=== PATIENT | male | born 1960 | race African-American/Black ===

== ENCOUNTER 2016-09-25 11:34 | Inpatient (IN) | payer OTHER ==
[2016-09-25 13:06] VITALS: BMI 33.3
--- NOTE | 2016-09-25 19:04 | HP ---
Admission ROS [facility] - [facility] Chief Complaint: i am here for rehab form cocaine Allergies/Adverse Reactions: Allergies Allergy/AdvReac Type Severity Reaction Status Date / Time No Known Allergies Allergy Verified 09/25/16 16:58 History of Present Illness: this 56 years old male with cocaine dependence,seeking rehab,last treatment o 10/22/15 [facility] not completed hypertension longest sobriety 2 and half years Exam Limitations: No Limitations - Ebola screening Have you traveled outside of the country in the last 21 days: No Have you been sick,other than usual withdrawal symptoms: No - Review of Systems Constitutional: No Symptoms Reported EENT: reports: No Symptoms Reported Respiratory: reports: No Symptoms reported Cardiac: reports: No Symptoms Reported GI: reports: No Symptoms Reported : reports: No Symptoms Reported Musculoskeletal: reports: Joint Pain, Other (injury of both knees, back pain ambulation with cane) Integumentary: reports: No Symptoms Reported Neuro: reports: No Symptoms reported Endocrine: reports: No Symptoms Reported Hematology: reports: No Symptoms Reported Psychiatric: reports: No Sypmtoms Reported Patient History - Patient Medical History Hx Anemia: No Hx Asthma: No Hx Chronic Obstructive Pulmonary Disease (COPD): No Hx Cancer: No Hx Cardiac Disorders: No Hx Congestive Heart Failure: No Hx Hypertension: Yes (ON MEDS) Hx Hypercholesterolemia: No Hx Pacemaker: No HX Cerebrovascular Accident: No Hx Seizures: No Hx Dementia: No Hx Diabetes: No Hx Gastrointestinal Disorders: No Hx Liver Disease: No Hx Genitourinary Disorders: No Hx Sexually Transmitted Disorders: No Hx Renal Disease (ESRD): No Hx Thyroid Disease: No Hx Human Immunodeficiency Virus (HIV): No Hx Hepatitis C: No Hx Depression: No Hx Suicide Attempt: No Hx Bipolar Disorder: Yes (NOT CURRENTLY TAKING MED ( DECLINES PSYCH EVAL THIS ADMISSION).) Hx Schizophrenia: No Other Medical History: no suiidal,no homicidal - Patient Surgical History Past Surgical History: No Hx Neurologic Surgery: No Hx Cataract Extraction: No Hx Cardiac Surgery: No Hx Lung Surgery: No Hx Breast Surgery: No Hx Breast Biopsy: No Hx Abdominal Surgery: No Hx Appendectomy: No Hx Cholecystectomy: No Hx Genitourinary Surgery: No Hx Section: No Hx Orthopedic Surgery: No Anesthesia Reaction: No - PPD History Previous Implant?: Yes Documented Results: Negative w/proof Implanted On Prior [facility] Admission?: Yes Date: 10/23/15 Results: 0 mm PPD to be Administered?: No - Smoking Cessation Smoking history: Never smoked Have you smoked in the past 12 months: No Hx Chewing Tobacco Use: No - Substance & Tx. History Hx Alcohol Use: No Substance Use Type: Cocaine Hx Substance Use Treatment: Yes (10/21/15 10/22/15 [facility] not completed) - Substances Abused Cocaine Route: Smoking Frequency: 3-6 times per week Amount used: 30$ Age of first use: 24 Date of Last Use: 09/22/16 Family Disease History - Family Disease History Family Disease History: Heart Disease: Mother (HTN- ) Admission Physical Exam [facility] - Vital Signs Vital Signs: Vital Signs - 24 hr 09/25/16 13:03 Temperature 96.2 F L Pulse Rate 72 Respiratory 18 Rate Blood Pressure 151/81 - Physical General Appearance: Yes: Within Normal Limits HEENTM: Yes: Within Normal Limits, Normocephalic, LUCY, Pharynx Normal Respiratory: Yes: Lungs Clear, Normal Breath Sounds, No Respiratory Distress Neck: Yes: Within Normal Limits Breast: Yes: Within Normal Limits Cardiology: Yes: Within Normal Limits, Regular Rhythm, Regular Rate, S1, S2 Abdominal: Yes: Within Normal Limits, Normal Bowel Sounds, Non Tender, Flat, Soft Genitourinary: Yes: Within Normal Limits Back: Yes: Other (low back pain chronic) Musculoskeletal: Yes: full range of Motion, Back pain, Muscle Pain Extremities: Yes: Other (on knees support limitation on movement both knees) Neurological: Yes: vp rheumatology II-XII NML intact, Fully Oriented, Alert, Motor Strength 5/5 Integumentary: Yes: Within Normal Limits Lymphatic: Yes: Within Normal Limits - Diagnostic (1) Cocaine dependence Current Visit: No Status: Acute Qualifiers: Complication of substance-induced condition: uncomplicated (2) Essential hypertension Current Visit: No Status: Chronic (3) Bipolar disorder Current Visit: No Status: Suspected Comment: PT DECLINED EVALUATION STATING "I'M FINE AND DON'T WANT TO SEE ANY PSYCH. IF I NEED HELP I WILL LET YOU KNOW". (4) Chronic low back pain Current Visit: Yes Status: Acute (5) Chronic pain of both knees Current Visit: Yes Status: Acute (6) Use of cane as ambulatory aid Current Visit: Yes Status: Acute Cleared for Admission [facility] - Detox or Rehab Claeared for Rehab Admission: Yes [facility] Breath Alcohol Content Breath Alcohol Content: 0 Urine Drug Screen - Results Drug Screen Negative: Yes
[2016-09-25] MEDS ORDERED: guaiFENesin/D-METHORPHAN HB 10 ML UNIT-DOSE CUPS PO PRN (19:22)
[2016-09-25] MEDS ORDERED: LOPERAMIDE HCL 2 MG CAPSULE PO PRN (19:22)
[2016-09-25] MEDS ORDERED: hydrOXYzine PAMOATE 50 MG CAPSULE (FP) PO PRN (19:22)
[2016-09-25] MEDS ORDERED: MAGNESIUM HYDROX 2400MG/30ML ORAL SUSPENSION 30 ML CUP PO PRN (19:22)
[2016-09-25] MEDS ORDERED: diphenhydrAMINE HCL 50 MG CAPSULE PO PRN (19:22)
[2016-09-25] MEDS ORDERED: MENTHOL/PHENOL 1 EACH UD MM PRN (19:22)
[2016-09-25] MEDS ORDERED: MAGNESIUM CITRATE 300 ML BOTTLE PO PRN (19:22)
[2016-09-25] MEDS ORDERED: MAG HYDROX/AL HYDROX/SIMETH 30 ML UNIT-DOSE CUP PO PRN (19:22)
[2016-09-25] MEDS ORDERED: P-EPHED 60MG/TRIPROLIDI 2.5MG TABLET PO PRN (19:22)
[2016-09-25] MEDS: THIAMINE HCL 100 MG TABLET (FP) PO SCH (22:14)
[2016-09-26 01:47] LABS: URINE APPEARANCE CLEAR; URINE BILIRUBIN NEGATIVE (NEGATIVE); URINE BLOOD NEGATIVE (NEGATIVE); URINE COLOR YELLOW; URINE GLUCOSE (UA) NEGATIVE (NEGATIVE); URINE KETONE NEGATIVE (NEGATIVE); URINE LEUK ESTERASE NEGATIVE (NEGATIVE); URINE NITRITE NEGATIVE (NEGATIVE); URINE PROTEIN NEGATIVE (NEGATIVE); URINE UROBILINOGEN NEGATIVE mg/dL (0.2-1.0)
[2016-09-26] MEDS: IBUPROFEN 400 MG TABLET (FP) PO PRN (07:19)
[2016-09-26] MEDS ORDERED: PATIENT'S OWN MEDICATION (NON-FORMULARY) (Losartan/Hydrochlorothiazide [Hyzaar 100-25 Tabl PO SCH (10:00)
[2016-09-26] MEDS ORDERED: amLODIPine BESYLATE 10 MG TABLET (FP) PO SCH (10:00)
[2016-09-26 10:35] LABS: MCH 26.5 pg (25.7-33.7); MCHC 32.4 g/dl (32.0-35.9); MEAN CELL VOLUME 81.7 fl (80-96); MEAN PLT VOLUME 9.1 fl (7.5-11.1); PLATELET COUNT 176 K/MM3 (134-434); RDW 14.9 % (11.9-15.9); WHITE BLOOD COUNT 5.1 K/mm3 (4.0-10.0)
[2016-09-26 10:43] LABS: ALBUMIN 3.5 g/dl (3.4-5.0); ANION GAP 7 (8-16); BILIRUBIN,TOTAL 0.5 mg/dL (0.2-1.0); CALCIUM 8.6 mg/dL (8.5-10.1); CO2 30 mmol/L (21-32); CREATININE 1.2 mg/dL (0.7-1.3); GLUCOSE,RANDOM 88 mg/dL (74-106); SGOT/AST 12 U/L (15-37); SGPT/ALT 23 U/L (12-78); TOT PROT 6.6 g/dl (6.4-8.2)
[2016-09-26 10:44] LABS: ALK PHOS 69 U/L (45-117)
[2016-09-26] MEDS ORDERED: [UNRECOGNIZED DRUG - REMARK] PO ONE (11:45)
[2016-09-26] MEDS: PRENATAL VITAMINS W/ FOLIC ACID TABLET (FP) PO SCH (13:13)
[2016-09-26] MEDS: THIAMINE HCL 100 MG TABLET (FP) PO SCH (21:56)
[2016-09-27] MEDS: amLODIPine BESYLATE 10 MG TABLET (FP) PO SCH (06:22)
[2016-09-27] MEDS: PATIENT'S OWN MEDICATION (NON-FORMULARY) (Losartan/Hydrochlorothiazide [Hyzaar 100-25 Tabl PO SCH (06:22)
[2016-09-27] MEDS: IBUPROFEN 400 MG TABLET (FP) PO PRN ×2 (06:24→21:12)
[2016-09-27] MEDS: PRENATAL VITAMINS W/ FOLIC ACID TABLET (FP) PO SCH (09:18)
[2016-09-27] MEDS: BACLOFEN 10 MG TABLET (FP) PO PRN (09:18)
[2016-09-27] MEDS: THIAMINE HCL 100 MG TABLET (FP) PO SCH (21:12)
[2016-09-28] MEDS: PATIENT'S OWN MEDICATION (NON-FORMULARY) (Losartan/Hydrochlorothiazide [Hyzaar 100-25 Tabl PO SCH (06:21)
[2016-09-28] MEDS: amLODIPine BESYLATE 10 MG TABLET (FP) PO SCH (06:21)
[2016-09-28] MEDS: IBUPROFEN 400 MG TABLET (FP) PO PRN ×2 (06:22→21:46)
[2016-09-28] MEDS: BACLOFEN 10 MG TABLET (FP) PO PRN (06:24)
--- NOTE | 2016-09-28 07:12 | HP ---
Psychiatrist Admission - Data Date of interview: 09/28/16 Admission source: Self-referred Identifying data: This is the second [facility] admission for this 56 years old single Black male, father of 3 children, unemployed on public assistance, homeless Medical History: Significant for hypertension Psychiatric History: Reports that his only psychiatric treatment was in 2008 following his mother's . Claims that he saw a psychiatist at a clinic in [place], [place], was diagnosed with Bipolar, depression and anxiety and started on Risperdal, Trazadone and Xanax. Reports that he took medications for only a year. Claims that he was using drug at that time. Denies history of previous psychiatric hospitalization or suicidal attempt. At present, reports feeling mildly depressed but sleeping well. Physical/Sexual Abuse/Trauma History: Denies history of emotional, physical or sexual abuse as well as DV relationship Additional Comment: Reports history of multiple arrests including 4 felony convictions. 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 No parole /probation at present Vital Signs: Vital Signs - 24 hr 09/27/16 09/28/16 09/28/16 10:15 00:30 07:00 Temperature 98.4 F Pulse Rate 65 62 Respiratory 18 18 18 Rate Blood Pressure 148/84 175/112 Allergies/Adverse Reactions: Allergies Allergy/AdvReac Type Severity Reaction Status Date / Time No Known Allergies Allergy Verified 09/25/16 16:58 Date of last physical exam: 09/25/16 Concur with the findings of this exam: Yes - Substance Abuse/Tx History Hx Alcohol Use: No Hx Substance Use: Yes Substance Use Type: Cocaine (Started using cocaine at age 24, consumes $30 worth 3-6 times weekly. Last used on 09/22/16) Hx Substance Use Treatment: Yes (8 previous inpt detox & one inpt rehab) - Admission Criteria Previous failed treatment: Yes Poor recovery environment: Yes Comorbidities: Yes Lacks judgement: Yes Mental Status Exam - Mental Status Exam Alert and Oriented to: Time, Place, Person Cognitive Function: Fair Patient Appearance: Well Groomed Mood: Depressed Affect: Appropriate Patient Behavior: Cooperative Speech Pattern: Clear Voice Loudness: Normal Thought Process: Intact, Goal Oriented Thought Disorder: Not Present Hallucinations: Denies Suicidal Ideation: Denies Homicidal Ideation: Denies Insight/Judgement: Fair Sleep: Well Appetite: Good Muscle strength/Tone: Normal Gait/Station: Normal Psychiatric Findings - Problem List ([place] 1, 2,3) (1) Cocaine dependence Current Visit: No Status: Acute Qualifiers: Complication of substance-induced condition: uncomplicated (2) Substance induced mood disorder Current Visit: Yes Status: Acute (3) Essential hypertension Current Visit: No Status: Chronic (4) Bipolar disorder Current Visit: No Status: Ruled-out Comment: PT DECLINED EVALUATION STATING "I'M FINE AND DON'T WANT TO SEE ANY PSYCH. IF I NEED HELP I WILL LET YOU KNOW". - Initial Treatment Plan Initial Treatment Plan: Monitor progress
--- NOTE | 2016-09-28 09:59 | EKG ---
Test Reason : Blood Pressure : / mmHG Vent. Rate : 073 BPM Atrial Rate : 073 BPM P-R Int : 144 ms QRS Dur : 094 ms QT Int : 438 ms P-R-T Axes : 042 -30 -14 degrees QTc Int : 482 ms SINUS RHYTHM WITH PREMATURE ATRIAL COMPLEXES LEFT AXIS DEVIATION VOLTAGE CRITERIA FOR LEFT VENTRICULAR HYPERTROPHY CANNOT RULE OUT SEPTAL INFARCT , AGE UNDETERMINED ABNORMAL ECG NO PREVIOUS ECGS AVAILABLE Confirmed by GREGORIO CRESPO, MICHAELA ([id number]) on 09/28/2016 9:59:00 AM Referred By: Hallie Wong Confirmed By:MICHAELA PERKINS MD
[2016-09-28] MEDS: PRENATAL VITAMINS W/ FOLIC ACID TABLET (FP) PO SCH (10:06)
[2016-09-28] MEDS: THIAMINE HCL 100 MG TABLET (FP) PO SCH (21:40)
[2016-09-29] MEDS: PATIENT'S OWN MEDICATION (NON-FORMULARY) (Losartan/Hydrochlorothiazide [Hyzaar 100-25 Tabl PO SCH (06:15)
[2016-09-29] MEDS: amLODIPine BESYLATE 10 MG TABLET (FP) PO SCH (06:16)
[2016-09-29] MEDS: PRENATAL VITAMINS W/ FOLIC ACID TABLET (FP) PO SCH (10:15)
[2016-09-29] MEDS ORDERED: cloNIDine HCL 0.1 MG TABLET PO ONE (15:56)
[2016-09-29] MEDS: IBUPROFEN 400 MG TABLET (FP) PO PRN (19:59)
[2016-09-29] MEDS: THIAMINE HCL 100 MG TABLET (FP) PO SCH (22:05)
[2016-09-30] MEDS: PATIENT'S OWN MEDICATION (NON-FORMULARY) (Losartan/Hydrochlorothiazide [Hyzaar 100-25 Tabl PO SCH (06:07)
[2016-09-30] MEDS: amLODIPine BESYLATE 10 MG TABLET (FP) PO SCH (06:07)
[2016-09-30] MEDS: IBUPROFEN 400 MG TABLET (FP) PO PRN (06:09)
[2016-09-30] MEDS: PRENATAL VITAMINS W/ FOLIC ACID TABLET (FP) PO SCH (11:10)
[2016-09-30] MEDS: ACETAMINOPHEN 325 MG TABLET (FP) PO PRN (11:15)
[2016-09-30] MEDS ORDERED: LIDOCAINE VISCOUS 2% ORAL/TOP 20 ML UNIT-DOSE CUP MM PRN (11:50)
--- NOTE | 2016-09-30 11:50 | PN ---
[facility] Progress Note Note: DENTAL CAVITY LEFT UPPER MOLAR,STATED THE FILLING CAME OFF, MOTINE 800 MGS PO TID PRN,LIDOCAINE VISCOUS PRN
--- NOTE | 2016-09-30 11:52 | PN ---
S Progress Note Note: ADENDUM PATIENT NEED EMERGENCY DENTAL CARE
[2016-09-30] MEDS: THIAMINE HCL 100 MG TABLET (FP) PO SCH (22:19)
[2016-10-01] MEDS: IBUPROFEN 400 MG TABLET (FP) PO PRN (00:25)
[2016-10-01] MEDS ORDERED: PT OWN MED DRAWER 7, Y5N ONE (03:31)
[2016-10-01] MEDS: amLODIPine BESYLATE 10 MG TABLET (FP) PO SCH (06:06)
[2016-10-01] MEDS: PATIENT'S OWN MEDICATION (NON-FORMULARY) (Losartan/Hydrochlorothiazide [Hyzaar 100-25 Tabl PO SCH (06:08)
[2016-10-01] MEDS: PRENATAL VITAMINS W/ FOLIC ACID TABLET (FP) PO SCH (10:03)
[2016-10-01] MEDS ORDERED: METOPROLOL TARTRATE 50 MG TABLET (FP) PO ONE (14:49)
[2016-10-01] MEDS: THIAMINE HCL 100 MG TABLET (FP) PO SCH (21:59)
[2016-10-01] MEDS: METOPROLOL TARTRATE 50 MG TABLET (FP) PO SCH (21:59)
[2016-10-02] MEDS: amLODIPine BESYLATE 10 MG TABLET (FP) PO SCH (05:08)
[2016-10-02] MEDS: PATIENT'S OWN MEDICATION (NON-FORMULARY) (Losartan/Hydrochlorothiazide [Hyzaar 100-25 Tabl PO SCH (05:08)
[2016-10-02] MEDS ORDERED: PT OWN MED DRAWER 7, Y5N ONE (05:08)
[2016-10-02] MEDS: METOPROLOL TARTRATE 50 MG TABLET (FP) PO SCH ×2 (09:43→21:30)
[2016-10-02] MEDS: PRENATAL VITAMINS W/ FOLIC ACID TABLET (FP) PO SCH (09:43)
[2016-10-02] MEDS: IBUPROFEN 400 MG TABLET (FP) PO PRN (21:30)
[2016-10-02] MEDS: THIAMINE HCL 100 MG TABLET (FP) PO SCH (21:31)
[2016-10-03] MEDS: PATIENT'S OWN MEDICATION (NON-FORMULARY) (Losartan/Hydrochlorothiazide [Hyzaar 100-25 Tabl PO SCH (06:30)
[2016-10-03] MEDS: amLODIPine BESYLATE 10 MG TABLET (FP) PO SCH (06:30)
[2016-10-03] MEDS: METOPROLOL TARTRATE 50 MG TABLET (FP) PO SCH ×2 (09:47→21:32)
[2016-10-03] MEDS: PRENATAL VITAMINS W/ FOLIC ACID TABLET (FP) PO SCH (09:47)
[2016-10-03] MEDS: THIAMINE HCL 100 MG TABLET (FP) PO SCH (21:33)
[2016-10-03] MEDS: IBUPROFEN 400 MG TABLET (FP) PO PRN (21:33)
[2016-10-04] MEDS: ACETAMINOPHEN 325 MG TABLET (FP) PO PRN (04:34)
[2016-10-04] MEDS: amLODIPine BESYLATE 10 MG TABLET (FP) PO SCH (05:58)
[2016-10-04] MEDS: PATIENT'S OWN MEDICATION (NON-FORMULARY) (Losartan/Hydrochlorothiazide [Hyzaar 100-25 Tabl PO SCH (05:58)
[2016-10-04] MEDS: PRENATAL VITAMINS W/ FOLIC ACID TABLET (FP) PO SCH (09:53)
[2016-10-04] MEDS: METOPROLOL TARTRATE 50 MG TABLET (FP) PO SCH ×2 (09:53→21:21)
[2016-10-04] MEDS: IBUPROFEN 400 MG TABLET (FP) PO PRN (21:19)
[2016-10-04] MEDS: THIAMINE HCL 100 MG TABLET (FP) PO SCH (21:19)
[2016-10-05] MEDS ORDERED: PT OWN MED DRAWER 7, Y5N ONE ×2 (05:16→09:05)
[2016-10-05] MEDS: PATIENT'S OWN MEDICATION (NON-FORMULARY) (Losartan/Hydrochlorothiazide [Hyzaar 100-25 Tabl PO SCH (06:05)
[2016-10-05] MEDS: amLODIPine BESYLATE 10 MG TABLET (FP) PO SCH (06:05)
[2016-10-05 07:08] VITALS: TEMP 97.5
[2016-10-05 08:28] VITALS: BP 155/85; PULSE 63
[2016-10-05] MEDS: PRENATAL VITAMINS W/ FOLIC ACID TABLET (FP) PO SCH (09:05)
[2016-10-05] MEDS: METOPROLOL TARTRATE 50 MG TABLET (FP) PO SCH (09:06)
--- NOTE | 2016-10-05 09:06 | PN ---
Psychiatric Progress Note Vital Signs: Vital Signs Period Temp Pulse Resp BP Sys/Astudillo Pulse Ox Last 24 Hr 97.5 F 57-65 18-18 144-158/74-100 Date of Session: 10/05/16 Chief Complaint:: Discharge Note HPI: Patient addressing Cocaine Dependence comorbid with Substance-Induced Mood Disorder ROS: HTN were medically managed Current Medications: Active Medications Generic Name Dose Route Start Last Admin Trade Name Freq PRN Reason Stop Dose Admin Acetaminophen 650 mg 09/25/16 19:22 10/04/16 04:34 Tylenol - PO 650 mg Q4H PRN Administration PAIN Al Hydroxide/Mg Hydroxide 30 ml 09/25/16 19:22 Mylanta Oral Suspension - PO Q6H PRN DYSPEPSIA Amlodipine Besylate 10 mg 09/26/16 07:02 10/05/16 06:05 Norvasc - PO 10 mg DAILY@0600 BLAKE Administration Baclofen 10 mg 09/25/16 19:24 09/28/16 06:24 Lioresal - PO 10 mg DAILY PRN Administration PAIN Diphenhydramine HCl 50 mg 09/25/16 19:22 10/01/16 01:42 Benadryl - PO 50 mg HSMR1 PRN Administration INSOMNIA Eucalyptus/Menthol/Phenol/Sorbitol 1 each 09/25/16 19:22 Cepastat Lozenge - MM Q4H PRN SORE THROAT Guaifenesin 10 ml 09/25/16 19:22 Robitussin Dm - PO Q6H PRN COUGH Hydroxyzine Pamoate 50 mg 09/25/16 19:22 Vistaril - PO Q4H PRN AGITATION Ibuprofen 800 mg 09/28/16 12:18 10/04/16 21:19 Motrin - PO 800 mg Q8H PRN Administration PAIN Lidocaine HCl 20 ml 09/30/16 11:50 10/04/16 04:35 Xylocaine 2% Viscous Oral - MM 20 ml Q6HPO PRN Administration ORAL PAIN/MOUTH SORES Loperamide HCl 4 mg 09/25/16 19:22 Imodium - PO Q6H PRN DIARRHEA Magnesium Citrate 300 ml 09/25/16 19:22 Citroma - PO Q48H PRN CONSTIPATION Magnesium Hydroxide 30 ml 09/25/16 19:22 Milk Of Magnesia - PO DAILY PRN CONSTIPATION Metoprolol Tartrate 50 mg 10/01/16 22:00 10/04/16 21:21 Lopressor - PO 50 mg BID BLAKE Administration Non-Formulary Medication 0 each 09/27/16 06:00 10/05/16 06:05 Losartan/Hydrochlorothiazide [Hyzaar 100-25 Tablet] PO 100 each DAILY@0600 BLAKE Administration Multivit/Folic Acid/Iron 1 tab 09/26/16 10:00 10/04/16 09:53 Vitamins ([facility]) - PO 1 tab DAILY BLAKE Administration Pseudoephedrine/Triprolidine 1 combo 09/25/16 19:22 Actifed - PO TID PRN NASAL CONGESTION Thiamine HCl 100 mg 09/25/16 22:00 10/04/16 21:19 Vitamin B1 - PO 100 mg HS BLAKE Administration Current Side Effect: No Lab tests ordered: Yes Lab tests reviewed: Yes Provider note:: Patient has completed this program today. He has partially met his treatment goals and will continue to address his issues in outpatient treatment at [facility]. 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 He is scheduled for discharge today Total face to face time:: 35 Mental Status Exam - Mental Status Exam Alert and Oriented to: Time, Place, Person Cognitive Function: Fair Patient Appearance: Well Groomed Mood: Hopeful, Euthymic Affect: Appropriate Patient Behavior: Cooperative Speech Pattern: Clear Voice Loudness: Normal Thought Process: Intact Thought Disorder: Not Present Hallucinations: Denies Suicidal Ideation: Denies Homicidal Ideation: Denies Insight/Judgement: Fair Sleep: Fair Muscle strength/Tone: Normal Gait/Station: Antalgic (walks with a cane) Psychiatric Treatment Plan - Problem List (1) Cocaine dependence Current Visit: No Qualifiers: Complication of substance-induced condition: uncomplicated (2) Substance induced mood disorder Current Visit: Yes (3) Essential hypertension Current Visit: No (4) Bipolar disorder Current Visit: No Comment: PT DECLINED EVALUATION STATING "I'M FINE AND DON'T WANT TO SEE ANY PSYCH. IF I NEED HELP I WILL LET YOU KNOW". Initial treatment plan: Patient is discharged today and referred back to [facility] for outpatient treeatment
== END 2016-10-05 09:25 | disposition home or self-care (01) | DRG 772 ==
LOC: YASAS 11:34 → Y3W 17:09
PROVIDERS: ADMIT Psychiatry & Neurology Psychiatry; ATTEND Psychiatry & Neurology Psychiatry
PROC: HZ42ZZZ Group Counseling for Substance Abuse Treatment, Cognitive-Behavioral (ICD-10-PCS; principal; 2016-09-25)
DX: F14.20 Cocaine dependence, uncomplicated (principal); F19.24 Other psychoactive substance dependence with psychoactive substance-induced mood disorder; F31.9 Bipolar disorder, unspecified; I10 Essential (primary) hypertension; K02.9 Dental caries, unspecified; R26.2 Difficulty in walking, not elsewhere classified; Z99.89 Dependence on other enabling machines and devices; M54.5 Low back pain; M25.562 Pain in left knee; M25.561 Pain in right knee; G89.29 Other chronic pain
CPT/HCPCS: 36415; 80053; 81003; 85027; 86593; 93005; 93010; J0475

== ENCOUNTER 2018-01-09 15:51 | Inpatient (IN) | payer OTHER ==
[2018-01-09 16:06] VITALS: BMI 33.7
--- NOTE | 2018-01-09 16:13 | HP ---
CIWA Score Nausea/Vomitin Muscle Tremors: 2 Anxiety: 2 Agitation: 2 Paroxysmal Sweats: 1-Minimal Palms Moist Orientation: 0-Oriented Tacttile Disturbances: 1-Very Mild Itch/Numbness Auditory Disturbances: 1-Very Mild Visual Disturbances: 0-None Headache: 2-Mild CIWA-Ar Total Score: 13 - Admission Criteria [facility] Guidelines: Admission for Medically Managed Detox: Requires at least one of the followin. CIWA greater than 12 2. Seizures within the past 24 hours 3. Delirium tremens within the past 24 hours 4. Hallucinations within the past 24 hours 5. Acute intervention needed for co occurring medical disorder 6. Acute intervention needed for co occurring psychiatric disorder 7. Severe withdrawal that cannot be handled at a lower level of care (continued vomiting, continued diarrhea, abnormal vital signs) requiring intravenous medication and/or fluids 8. Patient presents the following: CIWA greater than 12 Admission Criteria Met: Admission criteria met Admission ROS [facility] - HPI Chief Complaint: i need help to stop drinking alcohol and cocaine Allergies/Adverse Reactions: Allergies Allergy/AdvReac Type Severity Reaction Status Date / Time No Known Allergies Allergy Verified 01/09/18 17:08 History of Present Illness: this 57 years old male with alcohol and cocaine dependence,seeking detox, withdrawal symptom,last detox 10/21/15 to 10/22/15 not completed at [facility] 09/25/16 to 11/06/16 chronic both knees pain for 2 years ambulation with cane longest sobriety 17 months Exam Limitations: No Limitations - Ebola screening Have you been sick,other than usual withdrawal symptoms: No - Review of Systems Constitutional: Malaise, Night Sweats, Changes in sleep EENT: reports: Nose Congestion Respiratory: reports: No Symptoms reported GI: reports: Diarrhea, Nausea, Indigestion : reports: No Symptoms Reported Musculoskeletal: reports: Back Pain, Joint Pain, Muscle Pain, Joint Stiffness Integumentary: reports: Dryness Neuro: reports: Headache, Tremors Endocrine: reports: No Symptoms Reported Hematology: reports: No Symptoms Reported Psychiatric: reports: No Sypmtoms Reported, Mood/Affect Appropiate, Orientated x3 Patient History - Patient Medical History Hx Anemia: No Hx Asthma: No Hx Chronic Obstructive Pulmonary Disease (COPD): No Hx Cancer: No Hx Cardiac Disorders: No Hx Congestive Heart Failure: No Hx Hypertension: Yes (no med) Hx Hypercholesterolemia: No Hx Pacemaker: No HX Cerebrovascular Accident: No Hx Seizures: No Hx Dementia: No Hx Diabetes: No Hx Gastrointestinal Disorders: No Hx Liver Disease: No Hx Genitourinary Disorders: No Hx Sexually Transmitted Disorders: No Hx Renal Disease (ESRD): No Hx Thyroid Disease: No Hx Human Immunodeficiency Virus (HIV): No (last 2017 neative) Hx Hepatitis C: No Hx Depression: No Hx Suicide Attempt: No Hx Bipolar Disorder: Yes (NOT CURRENTLY TAKING MED ( DECLINES PSYCH EVAL THIS ADMISSION).) Hx Schizophrenia: No Other Medical History: no suicidal,no homicidal - Patient Surgical History Past Surgical History: No Hx Neurologic Surgery: No Hx Cataract Extraction: No Hx Cardiac Surgery: No Hx Lung Surgery: No Hx Breast Surgery: No Hx Breast Biopsy: No Hx Abdominal Surgery: No Hx Appendectomy: No Hx Cholecystectomy: No Hx Genitourinary Surgery: No Hx Section: No Hx Orthopedic Surgery: No Anesthesia Reaction: No - PPD History Previous Implant?: Yes Documented Results: Negative w/proof Implanted On Prior [facility] Admission?: Yes Date: 10/23/15 Results: 0 mm PPD to be Administered?: No - Smoking Cessation Smoking history: Never smoked Have you smoked in the past 12 months: No Hx Chewing Tobacco Use: No - Substance & Tx. History Hx Alcohol Use: Yes Hx Substance Use: Yes Substance Use Type: Alcohol, Cocaine Hx Substance Use Treatment: Yes ([facility] 10/21/15 to 10/22/15 not completed) - Substances Abused Alcohol Route: Oral Frequency: Daily Amount used: 6 packs of 24 ozs of beer Age of first use: 15 Date of Last Use: 01/09/18 Cocaine Route: Inhalation Frequency: Daily Amount used: 30$ Age of first use: 15 Date of Last Use: 01/09/18 Family Disease History - Family Disease History Family Disease History: Heart Disease: Mother (HTN- ) Admission Physical Exam [facility] - Vital Signs Vital Signs: Vital Signs - 24 hr 01/09/18 16:03 Temperature 98.6 F Pulse Rate 65 Respiratory 18 Rate Blood Pressure 161/109 H - Physical General Appearance: Yes: Moderate Distress, Tremorous, Irritable, Sweating, Anxious HEENTM: Yes: Normal ENT Inspection, LUCY, Pharynx Normal Respiratory: Yes: Lungs Clear, Normal Breath Sounds, No Respiratory Distress Neck: Yes: Within Normal Limits, Supple, Trachea in good position Breast: Yes: Within Normal Limits Cardiology: Yes: Within Normal Limits, Regular Rhythm, Regular Rate, S1, S2 Abdominal: Yes: Within Normal Limits, Normal Bowel Sounds, Non Tender, Flat, Soft Genitourinary: Yes: Within Normal Limits Back: Yes: Muscle Spasm Musculoskeletal: Yes: Back pain, Muscle Pain, Other (joint pain) Extremities: Yes: Tremors, Other (pain in bi=oth kneees arthritis ambulation with cane) 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 NML intact, Alert, Motor Strength 5/5, Normal Mood /Affect Integumentary: Yes: Dry Lymphatic: Yes: Within Normal Limits - Diagnostic (1) Alcohol dependence with uncomplicated withdrawal Current Visit: No Status: Acute (2) Chronic low back pain Current Visit: No Status: Acute (3) Chronic pain of both knees Current Visit: No Status: Acute (4) Cocaine dependence Current Visit: No Status: Acute Qualifiers: Complication of substance-induced condition: uncomplicated (5) Use of cane as ambulatory aid Current Visit: No Status: Acute (6) Essential hypertension Current Visit: No Status: Chronic (7) Bipolar disorder Current Visit: Yes Status: Acute Cleared for Admission [facility] - Detox or Rehab [facility] Level of Care: Medically Managed Detox Regimen/Protocol: Librium S Breath Alcohol Content Breath Alcohol Content: 0 Urine Drug Screen - Results Drug Screen Negative: No Urine Drug Screen Results: PETER-Cocaine
[2018-01-09] MEDS ORDERED: MAG HYDROX/AL HYDROX/SIMETH 30 ML UNIT-DOSE CUP PO PRN (16:23)
[2018-01-09] MEDS ORDERED: P-EPHED 60MG/TRIPROLIDI 2.5MG TABLET PO PRN (16:23)
[2018-01-09] MEDS ORDERED: ACETAMINOPHEN 325 MG TABLET (FP) PO PRN (16:23)
[2018-01-09] MEDS ORDERED: hydrOXYzine PAMOATE 50 MG CAPSULE (FP) PO PRN (16:23)
[2018-01-09] MEDS ORDERED: guaiFENesin/D-METHORPHAN HB 10 ML UNIT-DOSE CUPS PO PRN (16:23)
[2018-01-09] MEDS ORDERED: MAGNESIUM CITRATE 300 ML BOTTLE PO PRN (16:23)
[2018-01-09] MEDS ORDERED: LOPERAMIDE HCL 2 MG CAPSULE PO PRN (16:23)
[2018-01-09] MEDS ORDERED: MENTHOL/PHENOL 1 EACH UD MM PRN (16:23)
[2018-01-09] MEDS ORDERED: chlordiazePOXIDE HCL 25 MG CAPSULE PO PRN (16:23)
[2018-01-09] MEDS ORDERED: MAGNESIUM HYDROX 2400MG/30ML ORAL SUSPENSION 30 ML CUP PO PRN (16:23)
[2018-01-09] MEDS: IBUPROFEN 400 MG TABLET (FP) PO PRN (18:53)
[2018-01-09] MEDS: amLODIPine BESYLATE 10 MG TABLET (FP) PO SCH (18:53)
[2018-01-09] MEDS ORDERED: MELATONIN 5 MG TABLETS PO PRN (22:00)
[2018-01-09] MEDS: chlordiazePOXIDE HCL 25 MG CAPSULE PO SCH (22:53)
[2018-01-09] MEDS: THIAMINE HCL 100 MG TABLET (FP) PO SCH (22:53)
[2018-01-09] MEDS: METOPROLOL TARTRATE 50 MG TABLET (FP) PO SCH (22:54)
[2018-01-10] MEDS: chlordiazePOXIDE HCL 25 MG CAPSULE PO SCH ×4 (07:18→23:11)
[2018-01-10] MEDS ORDERED: cloNIDine HCL 0.1 MG TABLET PO ONE (07:24)
--- NOTE | 2018-01-10 07:27 | PN ---
S Progress Note Note: Patient's blood pressure is B/P 166/101. Patient is asymptomatic Vital Signs Temperature 97.4 F L 01/10/18 06:14 Pulse Rate 51 L 01/10/18 06:14 Respiratory Rate 18 01/10/18 06:14 Blood Pressure 166/101 H 01/10/18 06:14 O2 Sat by Pulse Oximetry (%) Action: Clonidine 0.1mg tablet oral ordered
[2018-01-10 10:22] LABS: ALBUMIN 3.4 g/dl (3.4-5.0); ALK PHOS 70 U/L (45-117); ANION GAP 6 MMOL/L (8-16); BILIRUBIN,TOTAL 0.1 mg/dL (0.2-1); BLOOD UREA NITROGEN 12 mg/dL (7-18); CALCIUM 8.2 mg/dL (8.5-10.1); CHLORIDE 106 mmol/L (98-107); CO2 30 mmol/L (21-32); GLUCOSE,RANDOM 89 mg/dL (74-106); POTASSIUM 3.7 mmol/L (3.5-5.1); SGOT/AST 10 U/L (15-37); SGPT/ALT 13 U/L (13-61); SODIUM 142 mmol/L (136-145); TOT PROT 6.6 g/dl (6.4-8.2)
[2018-01-10 10:28] LABS: HEMATOCRIT 41.3 % (35.4-49); HEMOGLOBIN 13.1 GM/dL (11.7-16.9); MCH 26.6 pg (25.7-33.7); MCHC 31.8 g/dl (32.0-35.9); MEAN CELL VOLUME 83.8 fl (80-96); MEAN PLT VOLUME 9.9 fl (7.5-11.1); PLATELET COUNT 184 K/MM3 (134-434); RBC 4.93 M/mm3 (4.00-5.60); RDW 14.7 % (11.9-15.9); WHITE BLOOD COUNT 5.1 K/mm3 (4.0-10.0)
[2018-01-10] MEDS: METOPROLOL TARTRATE 50 MG TABLET (FP) PO SCH ×2 (10:34→23:10)
[2018-01-10] MEDS: PRENATAL VITAMINS W/ FOLIC ACID TABLET (FP) PO SCH (10:34)
[2018-01-10] MEDS: LOSARTAN 50MG/HCTZ 12.5MG 1 TAB (FP) PO SCH (10:34)
[2018-01-10] MEDS: IBUPROFEN 400 MG TABLET (FP) PO PRN ×2 (10:36→18:03)
[2018-01-10] MEDS: amLODIPine BESYLATE 10 MG TABLET (FP) PO SCH (10:37)
--- NOTE | 2018-01-10 10:51 | EKG ---
Test Reason : Blood Pressure : / mmHG Vent. Rate : 063 BPM Atrial Rate : 063 BPM P-R Int : 140 ms QRS Dur : 102 ms QT Int : 446 ms P-R-T Axes : 025 -39 -60 degrees QTc Int : 456 ms NORMAL SINUS RHYTHM LEFT AXIS DEVIATION VOLTAGE CRITERIA FOR LEFT VENTRICULAR HYPERTROPHY T WAVE ABNORMALITY, CONSIDER LATERAL ISCHEMIA ABNORMAL ECG WHEN COMPARED WITH ECG OF 25-SEP-2016 21:55, PREMATURE ATRIAL COMPLEXES ARE NO LONGER PRESENT Confirmed by MICHAELA PERKINS MD ([id number]) on 01/10/2018 10:51:19 AM Referred By: Autumn Proctor Confirmed By:MICHAELA PERKINS MD
[2018-01-10 17:19] LABS: URINE APPEARANCE CLEAR; URINE BILIRUBIN NEGATIVE (<2.0 mg/dL); URINE COLOR LTYELLOW; URINE GLUCOSE (UA) NEGATIVE (NEGATIVE); URINE KETONE NEGATIVE (NEGATIVE); URINE LEUK ESTERASE NEGATIVE (NEGATIVE); URINE NITRITE NEGATIVE (NEGATIVE); URINE PROTEIN NEGATIVE (NEGATIVE); URINE UROBILINOGEN NEGATIVE mg/dL (0.2-1.0)
--- NOTE | 2018-01-10 19:22 | PN ---
[facility] CIWA - CIWA Score Nausea/Vomitin-Mild Nausea/No Vomiting Muscle Tremors: 3 Anxiety: 3 Agitation: 2 Paroxysmal Sweats: 3 Orientation: 0-Oriented Tacttile Disturbances: 0-None Auditory Disturbances: 0-None Visual Disturbances: 0-None Headache: 0-None Present CIWA-Ar Total Score: 12 S Progress Note (SOAP) Subjective: SLEEPLESS SWEATS Objective: 01/10/18 19:20 AMBULATES WITH CANE NOT IN DISTRESS Vital Signs Temperature 97.7 F 01/10/18 17:42 Pulse Rate 51 L 01/10/18 17:42 Respiratory Rate 16 01/10/18 17:42 Blood Pressure 148/99 01/10/18 17:42 O2 Sat by Pulse Oximetry (%) Laboratory Last Values WBC 5.1 K/mm3 (4.0-10.0) 01/10/18 07:00 RBC 4.93 M/mm3 (4.00-5.60) 01/10/18 07:00 Hgb 13.1 GM/dL (11.7-16.9) 01/10/18 07:00 Hct 41.3 % (35.4-49) 01/10/18 07:00 MCV 83.8 fl (80-96) 01/10/18 07:00 MCH 26.6 pg (25.7-33.7) 01/10/18 07:00 MCHC 31.8 g/dl (32.0-35.9) L 01/10/18 07:00 RDW 14.7 % (11.9-15.9) 01/10/18 07:00 Plt Count 184 K/MM3 (134-434) 01/10/18 07:00 MPV 9.9 fl (7.5-11.1) 01/10/18 07:00 Sodium 142 mmol/L (136-145) 01/10/18 07:00 Potassium 3.7 mmol/L (3.5-5.1) 01/10/18 07:00 Chloride 106 mmol/L (98-107) 01/10/18 07:00 Carbon Dioxide 30 mmol/L (21-32) 01/10/18 07:00 Anion Gap 6 MMOL/L (8-16) L 01/10/18 07:00 BUN 12 mg/dL (7-18) 01/10/18 07:00 Creatinine 1.0 mg/dL (0.55-1.3) 01/10/18 07:00 Creat Clearance w eGFR > 60 (>60) 01/10/18 07:00 Random Glucose 89 mg/dL (74-106) 01/10/18 07:00 Calcium 8.2 mg/dL (8.5-10.1) L 01/10/18 07:00 Total Bilirubin 0.1 mg/dL (0.2-1) L 01/10/18 07:00 AST 10 U/L (15-37) L 01/10/18 07:00 ALT 13 U/L (13-61) 01/10/18 07:00 Alkaline Phosphatase 70 U/L (45-117) 01/10/18 07:00 Total Protein 6.6 g/dl (6.4-8.2) 01/10/18 07:00 Albumin 3.4 g/dl (3.4-5.0) 01/10/18 07:00 Urine Color Ltyellow 01/10/18 15:48 Urine Appearance Clear 01/10/18 15:48 Urine pH 6.0 (5.0-8.0) 01/10/18 15:48 Ur Specific [place] 1.018 (1.010-1.035) 01/10/18 15:48 Urine Protein Negative (NEGATIVE) 01/10/18 15:48 Urine Glucose (UA) Negative (NEGATIVE) 01/10/18 15:48 Urine Ketones Negative (NEGATIVE) 01/10/18 15:48 Urine Blood Negative (NEGATIVE) 01/10/18 15:48 Urine Nitrite Negative (NEGATIVE) 01/10/18 15:48 Urine Bilirubin Negative (<2.0 mg/dL) 01/10/18 15:48 Urine Urobilinogen Negative mg/dL (0.2-1.0) 01/10/18 15:48 Ur Leukocyte Esterase Negative (NEGATIVE) 01/10/18 15:48 RPR Titer Nonreactive (NONREACTIVE) 01/10/18 07:00 LABS NOTED; WNL Assessment: 01/10/18 19:21 WITHDRAWAL SX Plan: CONTINUE DETOX
[2018-01-10] MEDS: THIAMINE HCL 100 MG TABLET (FP) PO SCH (23:12)
[2018-01-11] MEDS: chlordiazePOXIDE HCL 25 MG CAPSULE PO SCH ×3 (06:45→18:42)
[2018-01-11] MEDS ORDERED: METOPROLOL TARTRATE 50 MG TABLET (FP) PO ONE (07:43)
[2018-01-11] MEDS: LOSARTAN 50MG/HCTZ 12.5MG 1 TAB (FP) PO SCH (10:24)
[2018-01-11] MEDS: PRENATAL VITAMINS W/ FOLIC ACID TABLET (FP) PO SCH (10:24)
[2018-01-11] MEDS: amLODIPine BESYLATE 10 MG TABLET (FP) PO SCH (10:24)
--- NOTE | 2018-01-11 10:29 | PN ---
S CIWA - CIWA Score Nausea/Vomitin-No Nausea/No Vomiting Muscle Tremors: None Anxiety: 4-Mod. Anxious/Guarded Agitation: 4-Moderately Restless Paroxysmal Sweats: No Perspiration Orientation: 0-Oriented Tacttile Disturbances: 0-None Auditory Disturbances: 0-None Visual Disturbances: 0-None Headache: 0-None Present CIWA-Ar Total Score: 8 [facility] Progress Note (SOAP) Subjective: PATIENT ANXIOUS/IRRITABLE. DID NOT WANT TO SPEAK TO PROVIDER. Objective: 01/11/18 10:26 Vital Signs Temperature 97.1 F L 01/11/18 09:07 Pulse Rate 62 01/11/18 09:07 Respiratory Rate 19 01/11/18 09:07 Blood Pressure 151/83 01/11/18 09:07 O2 Sat by Pulse Oximetry (%) Laboratory Tests 01/10/18 01/10/18 01/10/18 07:00 07:00 07:00 WBC 5.1 RBC 4.93 Hgb 13.1 Hct 41.3 MCV 83.8 MCH 26.6 MCHC 31.8 L RDW 14.7 Plt Count 184 MPV 9.9 Sodium 142 Potassium 3.7 Chloride 106 Carbon Dioxide 30 Anion Gap 6 L BUN 12 Creatinine 1.0 Creat Clearance w eGFR > 60 Random Glucose 89 Calcium 8.2 L Total Bilirubin 0.1 L AST 10 L ALT 13 Alkaline Phosphatase 70 Total Protein 6.6 Albumin 3.4 Urine Color Urine Appearance Urine pH Ur Specific [place] Urine Protein Urine Glucose (UA) Urine Ketones Urine Blood Urine Nitrite Urine Bilirubin Urine Urobilinogen Ur Leukocyte Esterase RPR Titer Nonreactive 01/10/18 15:48 WBC RBC Hgb Hct MCV MCH MCHC RDW Plt Count MPV Sodium Potassium Chloride Carbon Dioxide Anion Gap BUN Creatinine Creat Clearance w eGFR Random Glucose Calcium Total Bilirubin AST ALT Alkaline Phosphatase Total Protein Albumin Urine Color Ltyellow Urine Appearance Clear Urine pH 6.0 Ur Specific [place] 1.018 Urine Protein Negative Urine Glucose (UA) Negative Urine Ketones Negative Urine Blood Negative Urine Nitrite Negative Urine Bilirubin Negative Urine Urobilinogen Negative Ur Leukocyte Esterase Negative RPR Titer PE: ANXIOUS/IRRITABLE DID NOT WANT TO SPEAK TO PROVIDER TURNED HIS BACK TO PROVIDER Assessment: 01/11/18 10:28 WITHDRAWAL SYNDROME Plan: CONTINUE DETOX REGIMEN ENCOURAGE ORAL FLUIDS CONTINUE TO MONITOR CLINICALLY
--- NOTE | 2018-01-11 15:56 | PN ---
[facility] Progress Note Note: Notified by RN patient blood pressure elevated after administration of morning antihypertensive medications. Patient asymptomatic. Vital Signs Temperature 97.0 F L 01/11/18 13:00 Pulse Rate 61 01/11/18 15:46 Respiratory Rate 18 01/11/18 13:00 Blood Pressure 159/96 01/11/18 15:46 O2 Sat by Pulse Oximetry (%) A/P: Elevated BP will order clonidine 0.1mg po x one dose. continue to monitor clinically
[2018-01-11] MEDS ORDERED: cloNIDine HCL 0.1 MG TABLET PO ONE (16:00)
[2018-01-11] MEDS: IBUPROFEN 400 MG TABLET (FP) PO PRN (18:42)
--- NOTE | 2018-01-11 18:42 | PN ---
[facility] Progress Note Note: Called to see patient regarding elevated blood pressure and patient refusing antihypertensive medications. Patient states "I know my body. I've been taking blood pressure medications for 35 years". States I will only take medications once a day. Vital Signs 01/11/18 01/11/18 01/11/18 13:00 15:46 17:43 Temperature 97.0 F L 97 F L Pulse Rate 58 L 61 61 Respiratory 18 16 Rate Blood Pressure 171/107 H 159/96 150/103 H Discussed the possibility that pressure is increased r/t withdrawal and that adjustments of medication management may need to be taken. Explained the risks of prolonged elevated blood pressure, including heart attack, stroke, and kidney failure. Patient continues to decline additional medication to control B/P. States he is aware of the risks and states "I haven't had a stroke or heart yet. I know my body. Patient encouraged to f/u uncontrolled B/P with PCP upon discharge. "
[2018-01-11] MEDS: chlordiazePOXIDE 5 MG CAPSULE PO SCH (22:16)
[2018-01-11] MEDS: METOPROLOL TARTRATE 50 MG TABLET (FP) PO SCH (22:16)
[2018-01-11] MEDS: THIAMINE HCL 100 MG TABLET (FP) PO SCH (22:16)
[2018-01-12] MEDS: chlordiazePOXIDE 5 MG CAPSULE PO SCH ×3 (05:20→17:44)
--- NOTE | 2018-01-12 10:18 | PN ---
[facility] Progress Note Note: PATIENT STATES HE FEELS MUCH BETTER TODAY. C/O MILD ANXIETY, INTERRUPTED SLEEP. Vital Signs Temperature 96.9 F L 01/12/18 09:21 Pulse Rate 58 L 01/12/18 09:21 Respiratory Rate 20 01/12/18 09:21 Blood Pressure 147/82 01/12/18 09:21 O2 Sat by Pulse Oximetry (%) Laboratory Tests 01/10/18 01/10/18 01/10/18 07:00 07:00 07:00 WBC 5.1 RBC 4.93 Hgb 13.1 Hct 41.3 MCV 83.8 MCH 26.6 MCHC 31.8 L RDW 14.7 Plt Count 184 MPV 9.9 Sodium 142 Potassium 3.7 Chloride 106 Carbon Dioxide 30 Anion Gap 6 L BUN 12 Creatinine 1.0 Creat Clearance w eGFR > 60 Random Glucose 89 Calcium 8.2 L Total Bilirubin 0.1 L AST 10 L ALT 13 Alkaline Phosphatase 70 Total Protein 6.6 Albumin 3.4 Urine Color Urine Appearance Urine pH Ur Specific [place] Urine Protein Urine Glucose (UA) Urine Ketones Urine Blood Urine Nitrite Urine Bilirubin Urine Urobilinogen Ur Leukocyte Esterase RPR Titer Nonreactive 01/10/18 15:48 WBC RBC Hgb Hct MCV MCH MCHC RDW Plt Count MPV Sodium Potassium Chloride Carbon Dioxide Anion Gap BUN Creatinine Creat Clearance w eGFR Random Glucose Calcium Total Bilirubin AST ALT Alkaline Phosphatase Total Protein Albumin Urine Color Ltyellow Urine Appearance Clear Urine pH 6.0 Ur Specific [place] 1.018 Urine Protein Negative Urine Glucose (UA) Negative Urine Ketones Negative Urine Blood Negative Urine Nitrite Negative Urine Bilirubin Negative Urine Urobilinogen Negative Ur Leukocyte Esterase Negative RPR Titer PE: ALERT AND ORIENTED X 3 SKIN WARM AND DRY EXT FULL ROM, NO TREMORS AMB AD MARC A/P WITHDRAWAL SX CONTINUE DETOX ENCOURAGE ORAL FLUIDS CONTINUE TO MONITOR CLINICALLY
[2018-01-12] MEDS: PRENATAL VITAMINS W/ FOLIC ACID TABLET (FP) PO SCH (10:36)
[2018-01-12] MEDS: LOSARTAN 50MG/HCTZ 12.5MG 1 TAB (FP) PO SCH (10:36)
[2018-01-12] MEDS: amLODIPine BESYLATE 10 MG TABLET (FP) PO SCH (10:36)
[2018-01-12] MEDS: IBUPROFEN 400 MG TABLET (FP) PO PRN (10:37)
[2018-01-12] MEDS: METOPROLOL TARTRATE 50 MG TABLET (FP) PO SCH ×2 (12:47→22:34)
[2018-01-12] MEDS: chlordiazePOXIDE HCL 10 MG CAPSULE PO SCH (22:33)
[2018-01-12] MEDS: THIAMINE HCL 100 MG TABLET (FP) PO SCH (22:35)
[2018-01-13] MEDS: chlordiazePOXIDE HCL 10 MG CAPSULE PO SCH ×2 (06:13→11:28)
[2018-01-13 09:10] VITALS: BP 157/96; PULSE 63; TEMP 97
--- NOTE | 2018-01-13 09:53 | DS ---
[facility] Detox Discharge Summary Admission Date: 01/09/18 Discharge Date: 01/13/18 - History Present History: Alcohol Dependence - Physical Exam Results Vital Signs: Vital Signs Temperature 97.0 F L 01/13/18 09:10 Pulse Rate 63 01/13/18 09:10 Respiratory Rate 18 01/13/18 09:10 Blood Pressure 157/96 01/13/18 09:10 O2 Sat by Pulse Oximetry (%) Pertinent Admission Physical Exam Findings: PATIENT COMPLETED DETOX WITHOUT ADVERSE EVENT. PATIENT ALERT AND ORIENTED X 3, DENIES SI/HI. AMB AD MARC AND IN NO ACUTE DISTRESS. PATIENT TO FOLLOW UP WITH PCP WITHIN ONE WEEK OF D/C AND [facility]. PATIENT ENCOURAGED ATTEND GROUP MEETINGS TO PREVENT RELAPSE. PATIENT ENCOURAGED TO SEEK MEDICAL ATTENTION IF WITHDRAWAL SX OCCUR. - Treatment Hospital Course: Detox Protocol Followed, Detoxed Safely, Responded well, Discharged Condition Good, Rehab Referral Accepted Patient has Accepted a Rehab Referral to: [facility] - Medication Discharge Medications: Ambulatory Orders Baclofen 1 tab PO DAILY PRN 10/21/15 Multivitamins [Tab-A-Vit -] 1 tab PO DAILY 09/25/16 Amlodipine Besylate [Norvasc -] 10 mg PO DAILY #30 tablet 01/12/18 Losartan/Hydrochlorothiazide [Hyzaar 100-25 Tablet] 1 each PO DAILY #30 tab Metoprolol Tartrate [Lopressor -] 50 mg PO BID #60 tablet 01/12/18 - Diagnosis (1) Alcohol dependence with uncomplicated withdrawal Current Visit: Yes Status: Resolved - AMA Did Patient Leave Against Medical Advice: No
[2018-01-13] MEDS: PRENATAL VITAMINS W/ FOLIC ACID TABLET (FP) PO SCH (10:31)
[2018-01-13] MEDS: amLODIPine BESYLATE 10 MG TABLET (FP) PO SCH (10:31)
[2018-01-13] MEDS: METOPROLOL TARTRATE 50 MG TABLET (FP) PO SCH (10:32)
[2018-01-13] MEDS: LOSARTAN 50MG/HCTZ 12.5MG 1 TAB (FP) PO SCH (10:32)
[2018-01-13] MEDS: IBUPROFEN 400 MG TABLET (FP) PO PRN (10:33)
== END 2018-01-13 11:28 | disposition home or self-care (01) | DRG 774 ==
LOC: YASAS 15:51 → Y3N 17:38
PROC: HZ2ZZZZ Detoxification Services for Substance Abuse Treatment (ICD-10-PCS; principal; 2018-01-09)
DX: F10.230 Alcohol dependence with withdrawal, uncomplicated (principal); F14.20 Cocaine dependence, uncomplicated; F19.24 Other psychoactive substance dependence with psychoactive substance-induced mood disorder; F31.9 Bipolar disorder, unspecified; I10 Essential (primary) hypertension; M54.5 Low back pain; M25.561 Pain in right knee; M25.562 Pain in left knee; G89.29 Other chronic pain; R26.89 Other abnormalities of gait and mobility; Z99.89 Dependence on other enabling machines and devices
CPT/HCPCS: 36415; 80053; 81003; 85027; 86593; 93005; 93010; J0735